=== PATIENT | female | born 1960 | race Caucasian/White ===

== ENCOUNTER 2019-04-11 16:40 | Observation (INO) | payer BC ==
--- NOTE | 2019-04-11 17:13 | ER Document Report ---
ED Medical Screen (RME) - General Chief Complaint: Chest Pain Stated Complaint: CHEST PAIN Time Seen by Provider: 04/11/19 17:06 Mode of Arrival: Ambulatory Information source: Patient Notes: 59-year-old female with history of arthritis fibromyalgia presents to the emergency department with 2 episodes of severe chest pain radiating up to her jaw. She reports it felt like her shoulder muscles were gavnio and she had severe pain through her chest and then it went up to her neck, jaw and down her left arm. Patient took 2 BC powders this morning. No complaints of nausea and vomiting. Patient does smoke. Denies family history of cardiac disease. Patient denies history of cardiac disease. I have greeted and performed a rapid initial assessment of this patient. A comprehensive ED assessment and evaluation of the patient, analysis of test results and completion of the medical decision making process will be conducted by additional ED providers. TRAVEL OUTSIDE OF THE [place] IN LAST 30 DAYS: No - Related Data Allergies/Adverse Reactions: amoxicillin Allergy (Verified 04/11/19 17:06) Antihistamines - Ethylenediamine Allergy (Verified 04/11/19 17:06) Sulfa (Sulfonamide Antibiotics) Allergy (Verified 04/11/19 17:06) Past Medical History - Social History Frequency of alcohol use: None Drug Abuse: None Physical Exam - Vital signs Vitals: Temp Pulse Resp BP Pulse Ox 98.9 F 97 18 157/97 H 94 04/11/19 16:51 04/11/19 16:51 04/11/19 16:51 04/11/19 16:51 04/11/19 16:51 Course - Vital Signs Vital signs: Temp Pulse Resp BP Pulse Ox 98.9 F 97 18 157/97 H 94 04/11/19 16:51 04/11/19 16:51 04/11/19 16:51 04/11/19 16:51 04/11/19 16:51
[2019-04-11 17:47] LABS: ABSOLUTE EOSINOPHILS # (AUTO) 0.1 10^3/uL (0.0-0.6); ABSOLUTE LYMPHOCYTES (AUTO) 1.9 10^3/uL (0.5-4.7); ABSOLUTE MONOCYTES (AUTO) 0.7 10^3/uL (0.1-1.4); BASOPHILS % (AUTO) 0.3 % (0-2); EOSINOPHILS % (AUTO) 0.5 % (0-6); HEMATOCRIT 47.5 % (36.0-47.0); LYMPHOCYTES % (AUTO) 19.6 % (13-45); MEAN CORPUSCULAR HEMOGLOBIN 31.6 pg (27.0-33.4); MEAN CORPUSCULAR HGB CONC 33.7 g/dL (32.0-36.0); MEAN CORPUSCULAR VOLUME 94 fl (80-97); MONOCYTES % (AUTO) 7.1 % (3-13); PLATELET COUNT 264 10^3/uL (150-450); RED BLOOD COUNT 5.07 10^6/uL (3.72-5.28); SEGMENTED NEUTROPHILS % (AUTO) 72.5 % (42-78); TOTAL CELLS COUNTED % (AUTO) 100 %; WHITE BLOOD COUNT 9.7 10^3/uL (4.0-10.5)
[2019-04-11 17:57] LABS: APPEARANCE,URINE CLEAR; BILIRUBIN,URINE NEGATIVE (NEGATIVE); COLOR,URINE STRAW; GLUCOSE, URINE NEGATIVE (NEGATIVE); KETONES,URINE NEGATIVE (NEGATIVE); LEUKOCYTE ESTERASE,URINE NEGATIVE (NEGATIVE); NITRITE,URINE NEGATIVE (NEGATIVE); PROTEIN,URINE NEGATIVE (NEGATIVE); URINE SPECIFIC GRAVITY 1.009; UROBILINOGEN,URINE NEGATIVE mg/dL (<2.0)
--- NOTE | 2019-04-11 18:02 | RADIOLOGY REPORT (SQ) ---
EXAM DESCRIPTION: CHEST 2 VIEWS COMPLETED DATE/TIME: 04/11/2019 5:49 pm REASON FOR STUDY: cp COMPARISON: None. EXAM PARAMETERS: NUMBER OF VIEWS: two views TECHNIQUE: Digital Frontal and Lateral radiographic views of the chest acquired. RADIATION DOSE: NA LIMITATIONS: none FINDINGS: LUNGS AND PLEURA: No opacities, masses or pneumothorax. No pleural effusion. MEDIASTINUM AND HILAR STRUCTURES: No masses or contour abnormalities. HEART AND VASCULAR STRUCTURES: Heart normal size. No evidence for failure. BONES: No acute findings. HARDWARE: None in the chest. Hardware in the cervical spine. OTHER: No other significant finding. IMPRESSION: NO ACUTE RADIOGRAPHIC FINDING IN THE CHEST. TECHNICAL DOCUMENTATION: JOB ID: [id number] [employer]- All Rights Reserved Reading location - IP/workstation name: [email or web address]
[2019-04-11 18:05] LABS: ALBUMIN 4.3 g/dL (3.5-5.0); ALKALINE PHOSPHATASE 57 U/L (38-126); ANION GAP 6 (5-19); ASPARTATE AMINO TRANSFERASE 22 U/L (14-36); BILIRUBIN,DIRECT 0.3 mg/dL (0.0-0.4); BILIRUBIN,TOTAL 0.3 mg/dL (0.2-1.3); BLOOD UREA NITROGEN 14 mg/dL (7-20); CALCIUM 9.5 mg/dL (8.4-10.2); CARBON DIOXIDE 36 mmol/L (22-30); CHLORIDE 98 mmol/L (98-107); POTASSIUM 3.5 mmol/L (3.6-5.0)
[2019-04-11 18:14] LABS: GLUCOSE 68 mg/dL (75-110)
[2019-04-11] MEDS ORDERED: ASPIRIN 81 MG TABLET, CHEWABLE PO ONE (20:40)
--- NOTE | 2019-04-11 22:00 | ER Document Report ---
Entered by JAQUELIN PINZON SCRIBE 04/11/192024 Acting as scribe for:MARY MOROCHO IV, MD ED General - General Chief Complaint: Chest Pain Stated Complaint: CHEST PAIN Time Seen by Provider: 04/11/19 17:06 Mode of Arrival: Ambulatory Information source: Patient Notes: This 59 year old female patient presents to the ED today with complaints of x2 episodes of severe sternal chest pain that began around 3:30 PM today. Patient states that she was sitting down at home when the first episode of pain started initially in her neck and shot down to her chest with radiation to her jaw and left arm. Patient states that the first episode lasted about x5-10 minutes and went away on its own. Patient notes that the second episode occurred around 4:30 PM, lasted less than x5 minutes, and was less intense as the first episode. Patient notes that she took 2 BC powders this morning. Patient denies any chest pain at this time, but reports a slight headache. Patient states that does have a history of hypertension, but stopped taking her medications for it x1-1.5 years ago when she was diagnosed with rheumatoid arthritis. Patient states that ever since her diagnosis, she has felt sick all the time and that she has no energy. Patient reports that she is a smoker and that she had a nucleotide stress test x4-5 years with no concerning results. TRAVEL OUTSIDE OF THE [place] IN LAST 30 DAYS: No - Related Data Allergies/Adverse Reactions: amoxicillin Allergy (Verified 04/11/19 17:06) Antihistamines - Ethylenediamine Allergy (Verified 04/11/19 17:06) Sulfa (Sulfonamide Antibiotics) Allergy (Verified 04/11/19 17:06) Past Medical History - General Information source: Patient - Social History Smoking Status: Current Every Day Smoker Chew tobacco use (# tins/day): No Smoking Education Provided: No Frequency of alcohol use: None Drug Abuse: None Family History: Reviewed & Not Pertinent, CVA - Mother, Other - Sister had open heart surgery at age 52 Patient has suicidal ideation: No Patient has homicidal ideation: No - Past Medical History Cardiac Medical History: Reports: Hx Hypertension Musculoskeletal Medical History: Reports Hx Arthritis - Rheumatoid, Reports Hx Fibromyalgia Review of Systems - Review of Systems Constitutional: No symptoms reported EENT: No symptoms reported Cardiovascular: See HPI, Chest pain Respiratory: No symptoms reported Gastrointestinal: No symptoms reported Genitourinary: No symptoms reported Female Genitourinary: No symptoms reported Musculoskeletal: No symptoms reported Skin: No symptoms reported Hematologic/Lymphatic: No symptoms reported Neurological/Psychological: See HPI, Headaches -: Yes All other systems reviewed and negative Physical Exam - Vital signs Vitals: Temp Pulse Resp BP Pulse Ox 98.9 F 97 18 157/97 H 94 04/11/19 16:51 04/11/19 16:51 04/11/19 16:51 04/11/19 16:51 04/11/19 16:51 Interpretation: Hypertensive - General General appearance: Alert - HEENT Head: Normocephalic, Atraumatic Eyes: Normal Pupils: PERRL - Respiratory Respiratory status: No respiratory distress Chest status: Nontender Breath sounds: Normal Chest palpation: Normal - Cardiovascular Rhythm: Regular Heart sounds: Normal auscultation Murmur: No - Abdominal Inspection: Normal Distension: No distension Bowel sounds: Normal Tenderness: Nontender Organomegaly: No organomegaly - Back Back: Normal, Nontender - Extremities General upper extremity: Normal inspection General lower extremity: Normal inspection - Neurological Neuro grossly intact: Yes - Psychological Associated symptoms: Normal affect, Normal mood - Skin Skin Temperature: Warm Skin Moisture: Dry Skin Color: Normal Course - Re-evaluation Re-evalutation: 04/11/19 22:52 Results of ED MSE discussed with patient and patient's significant other. All questions were answered. - Vital Signs Vital signs: Temp Pulse Resp BP Pulse Ox 98.9 F 97 19 136/97 H 93 04/11/19 16:51 04/11/19 16:51 04/11/19 22:01 04/11/19 22:01 04/11/19 22:01 - Laboratory Result Diagrams: 04/11/19 17:27 04/11/19 17:27 Laboratory results interpreted by me: 04/11/19 04/11/19 17:27 17:27 Hgb 16.0 H Hct 47.5 H Potassium 3.5 L Carbon Dioxide 36 H Glucose 68 L - Diagnostic Test Radiology reviewed: Reports reviewed - EKG Interpretation by Me Additional EKG results interpreted by me: 04/11/19 22:45 EKG obtained on 04/11/2019 at 1644 hrs. was interpreted by this MD. Findings: Sinus rhythm, rate 99, normal axis, P waves proceed QRS complexes, QRS complexes appear narrow, ST segments are nonspecific. Impression: Normal sinus rhythm with nonspecific ST segments EKG obtained on 04/11/2019 at 2233 hrs. was interpreted by this MD. Findings: Normal sinus rhythm, normal axis, rate 89, P waves preceding QRS complexes, QRS complexes appear narrow, there are no obvious patterns of ST segment elevation or depression to suggest acute ischemia or infarction. Impression: Normal sinus rhythm with nonspecific ST segments. - Consults DR. SAHNI Time consulted: 22:08 - STATED REPEAT EKG, IF UNCHANGED, ADMIT TO HOSPITALIST Reason for consultation: 04/11/19 22:[address] SANCHEZ Time consulted: 22:45 - Accepted patient for admission to telemetry OBS. Re quested repeat Accu-Chek and TSH be added to work-up. Reason for consultation: 04/11/19 22:51 CHEST PAIN Consulted provider: will see as inpatient Discharge - Discharge Clinical Impression: Chest pain Qualifiers: Chest pain type: unspecified Qualified Code(s): R07.9 - Chest pain, unspecified Condition: Good Disposition: ADMITTED OBSERVATION Admitting Provider: Mohsen (Hospitalist) Unit Admitted: Telemetry I personally performed the services described in the documentation, reviewed and edited the documentation which was dictated to the scribe in my presence, and it accurately records my words and actions.
[2019-04-11] MEDS ORDERED: ACETAMINOPHEN 325 MG TABLET PO PRN (22:52)
[2019-04-11] MEDS ORDERED: NITROGLYCERIN 0.4 MG/TAB 25 TAB/BOTTLE SL PRN (22:52)
--- NOTE | 2019-04-11 23:21 | EKG REPORT ---
SEVERITY:- ABNORMAL ECG - SINUS RHYTHM RIGHT ATRIAL ABNORMALITY BORDERLINE T ABNORMALITIES, ANT-LAT LEADS : Confirmed by: Jackie Oakley 11-Apr-2019 23:20:31
--- NOTE | 2019-04-11 23:22 | EKG REPORT ---
SEVERITY:- ABNORMAL ECG - SINUS RHYTHM RAA, CONSIDER BIATRIAL ABNORMALITIES BORDERLINE T ABNORMALITIES, ANT-LAT LEADS : Confirmed by: Jackie Oakley 11-Apr-2019 23:20:41
--- NOTE | 2019-04-12 06:50 | PDOC H&P ---
History of Present Illness Admission Date/PCP: 04/11/19 23:20 Patient complains of: Chest pain History of Present Illness: SIERRA DIAZ is a 59 year old female with a past medical history of hypertension without treatment, GERD, 80 pack years of tobacco, 30 pound weight loss in 2 years and chronic pain. She presents 5 hours after 2 similar episodes of 3-5 chest tightness radiating about her upper chest to the left arm associated with shortness of breath, nausea, denying palpitations. She is unable to identify alleviating or exacerbating factors. She denies recent change in medications, previous episode or recent cardiac stress test. In the emergency department she has an unremarkable work-up and is referred to the hospitalist for observation. Past Medical History Cardiac Medical History: Reports: Hypertension Musculoskeltal Medical History: Reports: Arthritis - Rheumatoid, Fibromyalgia Psychiatric Medical History: Reports: Tobacco Dependency Denies: Depression Past Surgical History Past Surgical History: Reports: Other - C-spine surgery Social History Smoking Status: Current Every Day Smoker Cigarettes Packs Per Day: 2 Number of Years Smokin Frequency of Alcohol Use: None Hx Recreational Drug Use: No - denies Drugs: None Hx Prescription Drug Abuse: No - Advance Directive Resuscitation Status: Full Code Family History Family History: CAD, CVA - Mother, Other - Sister had open heart surgery at age 52 Parental Family History Reviewed: Yes Children Family History Reviewed: Yes Sibling(s) Family History Reviewed.: Yes Medication/Allergy Home Medications: Butalb/Acetaminophen/Caffeine [Fioricet (50-325-40 mg) Tablet] 1 tab PO BID 04/12/19 Cyclobenzaprine HCl [Flexeril 10 mg Tablet] 10 mg PO BID 04/12/19 Gabapentin 600 mg PO TID 04/12/19 Pregabalin [Lyrica 100 mg Capsule] 100 mg PO TID 04/12/19 Allergies/Adverse Reactions: amoxicillin Allergy (Verified 04/11/19 17:06) Antihistamines - Ethylenediamine Allergy (Verified 04/11/19 17:06) monosodium glutamate Allergy (Verified 04/12/19 03:41) pineapple Allergy (Verified 04/12/19 03:39) Sulfa (Sulfonamide Antibiotics) Allergy (Verified 04/11/19 17:06) Review of Systems Constitutional: PRESENT: as per HPI, fatigue, weight loss. ABSENT: chills, fever(s), headache(s), weight gain Eyes: ABSENT: visual disturbances Ears: ABSENT: hearing changes Cardiovascular: ABSENT: chest pain, dyspnea on exertion, edema, orthropnea, palpitations Respiratory: PRESENT: cough. ABSENT: hemoptysis, sputum Gastrointestinal: ABSENT: abdominal pain, constipation, diarrhea, hematemesis, hematochezia, nausea, vomiting Genitourinary: ABSENT: dysuria, hematuria Musculoskeletal: ABSENT: joint swelling Integumentary: ABSENT: rash, wounds Neurological: ABSENT: abnormal gait, abnormal speech, confusion, dizziness, focal weakness, syncope Psychiatric: ABSENT: anxiety, depression, homidical ideation, suicidal ideation Endocrine: ABSENT: cold intolerance, heat intolerance, polydipsia, polyuria Hematologic/Lymphatic: ABSENT: easy bleeding, easy bruising Physical Exam Vital Signs: Temp Pulse Resp BP Pulse Ox 97.3 F 83 18 150/98 H 92 04/12/19 02:53 04/12/19 02:53 04/12/19 02:53 04/12/19 02:53 04/12/19 02:53 Intake & Output 04/10/19 04/11/19 04/12/19 11:59 11:59 11:59 Weight 47.5 kg General appearance: PRESENT: no acute distress, cooperative, thin, well-de veloped, well-nourished Head exam: PRESENT: atraumatic, normocephalic Eye exam: PRESENT: conjunctiva pink, EOMI, PERRLA. ABSENT: scleral icterus Ear exam: PRESENT: normal external ear exam Mouth exam: PRESENT: moist, tongue midline Neck exam: ABSENT: carotid bruit, JVD, lymphadenopathy, thyromegaly Respiratory exam: PRESENT: crackles, prolonged expiratory phas, symmetrical. ABSENT: accessory muscle use, clear to auscultation shanti, stridor, tachypnea Cardiovascular exam: PRESENT: RRR. ABSENT: diastolic murmur, rubs, systolic murmur Pulses: PRESENT: normal dorsalis pedis pul Vascular exam: PRESENT: normal capillary refill GI/Abdominal exam: PRESENT: normal bowel sounds, soft. ABSENT: distended, guarding, mass, organolmegaly, rebound, tenderness Rectal exam: PRESENT: deferred Extremities exam: PRESENT: full ROM. ABSENT: calf tenderness, clubbing, pedal edema Neurological exam: PRESENT: alert, awake, oriented to person, oriented to place, oriented to time, oriented to situation, CN II-XII grossly intact. ABSENT: motor sensory deficit Psychiatric exam: PRESENT: appropriate affect, normal mood. ABSENT: homicidal ideation, suicidal ideation Skin exam: PRESENT: dry, intact, warm. ABSENT: cyanosis, rash Results Laboratory Results: 04/11/19 17:27 04/11/19 17:27 04/11/19 04/11/19 04/11/19 17:27 17:27 17:27 WBC 9.7 RBC 5.07 Hgb 16.0 H Hct 47.5 H MCV 94 MCH 31.6 MCHC 33.7 RDW 14.0 Plt Count 264 Seg Neutrophils % 72.5 Sodium 140.2 Potassium 3.5 L Chloride 98 Carbon Dioxide 36 H Anion Gap 6 BUN 14 Creatinine 0.63 Est GFR ( Amer) > 60 Glucose 68 L Calcium 9.5 Total Bilirubin 0.3 AST 22 Alkaline Phosphatase 57 Total Protein 8.0 Albumin 4.3 TSH Urine Color STRAW Urine Appearance CLEAR Urine pH 6.0 Ur Specific [place] 1.009 Urine Protein NEGATIVE Urine Glucose (UA) NEGATIVE Urine Ketones NEGATIVE Urine Blood NEGATIVE Urine Nitrite NEGATIVE Ur Leukocyte Esterase NEGATIVE Urine WBC (Auto) 0 Urine RBC (Auto) 0 04/11/19 17:27 WBC RBC Hgb Hct MCV MCH MCHC RDW Plt Count Seg Neutrophils % Sodium Potassium Chloride Carbon Dioxide Anion Gap BUN Creatinine Est GFR ( Amer) Glucose Calcium Total Bilirubin AST Alkaline Phosphatase Total Protein Albumin TSH 2.32 Urine Color Urine Appearance Urine pH Ur Specific [place] Urine Protein Urine Glucose (UA) Urine Ketones Urine Blood Urine Nitrite Ur Leukocyte Esterase Urine WBC (Auto) Urine RBC (Auto) 04/11/19 04/11/19 04/12/19 17:27 20:22 02:50 Troponin I 0.015 0.021 < 0.012 Impressions: Chest X-Ray 04/11/19 17:10 IMPRESSION: NO ACUTE RADIOGRAPHIC FINDING IN THE CHEST. Assessment and Plan - Diagnosis (1) Chest pain Qualifiers: Chest pain type: unspecified Qualified Code(s): R07.9 - Chest pain, unspe cified Is this a current diagnosis for this admission?: Yes Plan: Chest pain care set deployed, follow-up cardiac enzymes, lipid profile, TSH and Cardiolite stress test. (2) Hypertension Is this a current diagnosis for this admission?: Yes Plan: Trial Norvasc (3) Chronic pain Is this a current diagnosis for this admission?: Yes Plan: Outpatient regiment, hold Lyrica secondary to CO2 retention. (4) Weight loss Is this a current diagnosis for this admission?: Yes Plan: High risk for lung cancer, follow-up CT chest (5) Tobacco abuse Is this a current diagnosis for this admission?: Yes Plan: Cessation counseling performed, nicotine replacement options discussed. (6) COPD (chronic obstructive pulmonary disease) Is this a current diagnosis for this admission?: Yes Plan: Albuterol, Atrovent twice daily (7) Polycythemia Is this a current diagnosis for this admission?: Yes Plan: Reactive secondary to COPD and tobacco dependence. Education - Time Time Spent with patient: 25-34 minutes - Inpatient Certification Medical Necessity: Need Close Monitoring Due to Risk of Patient Decompensation
[2019-04-12] MEDS ORDERED: AMLODIPINE BESYLATE 5 MG TABLET PO ONE (07:00)
[2019-04-12 07:51] LABS: CHOLESTEROL 200.88 mg/dL (0-200); TRIGLYCERIDES 102 mg/dL (<150)
[2019-04-12] MEDS ORDERED: IPRATROPIUM/ALBUTEROL 0.5-2.5 MG/3 ML AMPUL NEB SCH (08:00)
[2019-04-12 08:02] LABS: DIRECT LDL 143 mg/dL (<100)
[2019-04-12] MEDS: GABAPENTIN 300 MG CAPSULE PO SCH ×2 (09:41→14:23)
--- NOTE | 2019-04-12 09:52 | RADIOLOGY REPORT (SQ) ---
EXAM DESCRIPTION: CT CHEST WITH COMPLETED DATE/TIME: 04/12/2019 8:57 am REASON FOR STUDY: weight loss, 80 pack years COMPARISON: Chest x-ray dated 04/11/2019. TECHNIQUE: CT scan of the chest performed using helical scanning technique with dynamic intravenous contrast injection. Images reviewed with lung, soft tissue and bone windows. Reconstructed coronal and sagittal MPR and MIP images reviewed. All images stored on PACS. All CT scanners at this facility use dose modulation, iterative reconstruction, and/or weight based d osing when appropriate to reduce radiation dose to as low as reasonably achievable (ALARA). [facility]: Dose Right [facility]: CareDose [facility]: Dose Right [facility]: Teradose 4D [facility]: [employer] CONTRAST TYPE AND DOSE: contrast/concentration: Isovue 350.00 mg/ml; Total Contrast Delivered: 70.0 ml; Total Saline Delivered: 55.0 ml RENAL FUNCTION: BUN 14 creatinine 0.63. RADIATION DOSE: CT Rad equipment meets quality standard of care and radiation dose reduction techniq ues were employed. CTDIvol: 4.8 mGy. DLP: 178 mGy-cm. . LIMITATIONS: None. FINDINGS: LUNGS AND PLEURA: There are few scattered tiny, 1-2 mm, subpleural nodules in both lungs. No infiltrates or masses. No pneumothorax. No effusions. HILAR AND MEDIASTINAL STRUCTURES: No identified masses or abnormal nodes. HEART AND VASCULAR STRUCTURES: No aneurysm or dissection. No central pulmonary emboli. No pericardi al effusion. HARDWARE: None in the chest. UPPER ABDOMEN: No significant findings. Limited exam. THYROID AND OTHER SOFT TISSUES: No masses. No adenopathy. BONES: There is a subtle small radiolucency in the right side of the body of the T4 vertebra, best vi sualized on axial series 4, image 19 and sagittal series 602, image 45. OTHER: No other significant finding. IMPRESSION: 1. SUBTLE SMALL RADIOLUCENCY IN THE RIGHT SIDE OF THE BODY OF THE T4 VERTEBRA DESCRIBED. THIS COU LD REPRESENT TRABECULAR PATTERN ALTHOUGH CANNOT EXCLUDE A SMALL LYTIC METASTASIS. MAY CONSIDER MRI F OR FURTHER EVALUATION. 2. A FEW SCATTERED TINY SUBPLEURAL NODULES IN BOTH LUNGS, MEASURING 1-2 MM. NO OTHER SIGNIFICANT FIN DINGS IN THE CHEST. MAY CONSIDER FOLLOW-UP BASED ON FLEISCHNER CRITERIA. COMMENT: FLEISCHNER CRITERIA FOR FOLLOW-UP OF PULMONARY NODULES Incidentally detected new nodules in persons 35 or older. HIGH RISK: History of smoking or other known risk factors. <6 mm multiple solid nodules: LOW RISK: no routine followup. HIGH RISK: optional CT 12 mo. TECHNICAL DOCUMENTATION: JOB ID: [id number] Quality ID # [id number]: Final reports with documentation of one or more dose reduction techniques (e.g., Au tomated exposure control, adjustment of the mA and/or kV according to patient size, use of iterative reconstruction technique) 2010 [employer]- All Rights Reserved Reading location - IP/workstation name: [email or web address]
[2019-04-12] MEDS ORDERED: CYCLOBENZAPRINE HCL 10 MG TABLET PO SCH (10:00)
[2019-04-12] MEDS ORDERED: BUTALB/ACETAMINOPHEN/CAFFEINE 1 TAB EACH PO SCH (10:00)
[2019-04-12] MEDS ORDERED: PREGABALIN 100 MG CAPSULE PO SCH (14:00)
--- NOTE | 2019-04-12 14:46 | PDOC DISCHARGE SUMMARY ---
Impression - Admit/DC Date/PCP Admission Date/Primary Care Provider: 04/11/19 23:20 Discharge Date: 04/12/19 - Discharge Diagnosis (1) Atypical chest pain Is this a current diagnosis for this admission?: Yes (2) Neuropathic pain of upper extremity Is this a current diagnosis for this admission?: Yes (3) Pulmonary nodules Is this a current diagnosis for this admission?: Yes (4) Hypertension Is this a current diagnosis for this admission?: Yes (5) Polycythemia Is this a current diagnosis for this admission?: Yes (6) Tobacco abuse Is this a current diagnosis for this admission?: Yes (7) Weight loss Is this a current diagnosis for this admission?: Yes - Additional Information Resuscitation Status: Full Code Discharge Diet: Other (Comments) - Low-fat low-cholesterol diet Discharge Activity: Activity As Tolerated Referrals: MANDA JOHNSON MD [ACTIVE STAFF] - Prescriptions: Atorvastatin Calcium [Lipitor 80 mg Tablet] 80 mg PO QHS #30 tablet Nitroglycerin [Nitrostat 0.4 mg (1/150 Gr) Tabs 25/Bottle] 1 tab SL Q5MP PRN #1 bottle PRN Reason: Amlodipine Besylate [Norvasc 5 mg Tablet] 5 mg PO DAILY 30 Days tablet Home Medications: Amlodipine Besylate [Norvasc 5 mg Tablet] 5 mg PO DAILY 30 Days tablet 04/12/19 Atorvastatin Calcium [Lipitor 80 mg Tablet] 80 mg PO QHS #30 tablet 04/12/19 Butalb/Acetaminophen/Caffeine [Fioricet (50-325-40 mg) Tablet] 1 tab PO BID 04/12/19 Cyclobenzaprine HCl [Flexeril 10 mg Tablet] 10 mg PO BID 04/12/19 Gabapentin 600 mg PO TID 04/12/19 Milnacipran HCl [Savella] 100 mg PO BID 04/12/19 Nitroglycerin [Nitrostat 0.4 mg (1/150 Gr) Tabs 25/Bottle] 1 tab SL Q5MP PRN #1 bottle 04/12/19 Pregabalin [Lyrica 100 mg Capsule] 100 mg PO TID 04/12/19 History of Present Illiness History of Present Illness: SIERRA DIAZ is a 59 year old female with a past medical history of hypertension without treatment, GERD, 80 pack years of tobacco, 30 pound weight loss in 2 years and chronic pain. She presents 5 hours after 2 similar episodes of 3-5 chest tightness radiating about her upper chest to the left arm associated with shortness of breath, nausea, denying palpitations. She is unable to identify alleviating or exacerbating factors. She denies recent change in medications, previous episode or recent cardiac stress test. In the emergency department she has an unremarkable work-up and is referred to the hospitalist for observation. Hospital Course Hospital Course: Patient was admitted and evaluated for chest pain. Patient's chest pain was atypical in nature emanating from bilateral sides of the neck and radiating down to chest and left arm. Patient endorsed a history of cervical spinal disease and has undergone cervical spinal surgery 3 years ago. Patient has also had a stress test a few years ago which was negative. Patient's EKG on this admission showed no evidence of ischemia. Initial troponin was minimally elevated at 0.01 5 but subsequent troponins were all normal. Patient underwent chest CT with contrast to evaluate her weight loss given her smoking history of 80 pack years. The chest CT showed no evidence of infiltrates or edema in the lungs and no masses but did show some tiny pulmonary nodules of 1 to 2 mm in diameter. Patient was informed and recommended to get a repeat chest CT in 1 year. Patient has been chest pain-free throughout today and is requesting that she would like to go home. She has assured that she will make a follow-up appointment with a energy efficiency specialist to have a stress test done given her risk factors for coronary artery disease. I have given her information for 1 of our energy efficiency specialist for her to follow-up with for stress test. Have also started her on amlodipine for hypertension, nitroglycerin for trial as needed for chest pain and atorvastatin given her dyslipidemia and ASCVD 10-year risk score of 16. At this time, it is not certain that her chest pain is due to any cardiovascular cause at this time though she has risk factors so she would need to have a stress test done. Another high suspicion as to the etiology of her symptoms include referred neuropathic pain from her established cervical spinal disease though Spurling's maneuver was negative. Patient is safe and steady for discharge at this time and her symptoms have resolved. Physical Exam Vital Signs: Temp Pulse Resp BP Pulse Ox 97.5 F 91 17 151/90 H 91 L 04/12/19 12:11 04/12/19 14:00 04/12/19 12:11 04/12/19 12:11 04/12/19 12:11 Intake & Output 04/11/19 04/12/19 04/13/19 06:59 06:59 06:59 Intake Total 240 Balance 240 Weight 47.5 kg General appearance: PRESENT: no acute distress, cooperative Neck exam: PRESENT: other - Negative Spurling's maneuver. ABSENT: JVD Respiratory exam: PRESENT: clear to auscultation shanti Cardiovascular exam: PRESENT: +S1, +S2 Results Laboratory Results: WBC 9.7 10^3/uL (4.0-10.5) 04/11/19 17:27 RBC 5.07 10^6/uL (3.72-5.28) 04/11/19 17:27 Hgb 16.0 g/dL (12.0-15.5) H 04/11/19 17:27 Hct 47.5 % (36.0-47.0) H 04/11/19 17:27 MCV 94 fl (80-97) 04/11/19 17:27 MCH 31.6 pg (27.0-33.4) 04/11/19 17:27 MCHC 33.7 g/dL (32.0-36.0) 04/11/19 17:27 RDW 14.0 % (11.5-14.0) 04/11/19 17:27 Plt Count 264 10^3/uL (150-450) 04/11/19 17:27 Lymph % (Auto) 19.6 % (13-45) 04/11/19 17:27 [place]ockley % (Auto) 7.1 % (3-13) 04/11/19 17:27 Eos % (Auto) 0.5 % (0-6) 04/11/19 17:27 Baso % (Auto) 0.3 % (0-2) 04/11/19 17:27 Absolute Neuts (auto) 7.0 10^3/uL (1.7-8.2) 04/11/19 17:27 Absolute Lymphs (auto) 1.9 10^3/uL (0.5-4.7) 04/11/19 17:27 Absolute Monos (auto) 0.7 10^3/uL (0.1-1.4) 04/11/19 17:27 Absolute Eos (auto) 0.1 10^3/uL (0.0-0.6) 04/11/19 17:27 Absolute Basos (auto) 0.0 10^3/uL (0.0-0.2) 04/11/19 17:27 Seg Neutrophils % 72.5 % (42-78) 04/11/19 17:27 Sodium 140.2 mmol/L (137-145) 04/11/19 17:27 Potassium 3.5 mmol/L (3.6-5.0) L 04/11/19 17:27 Chloride 98 mmol/L (98-107) 04/11/19 17:27 Carbon Dioxide 36 mmol/L (22-30) H 04/11/19 17:27 Anion Gap 6 (5-19) 04/11/19 17:27 BUN 14 mg/dL (7-20) 04/11/19 17:27 Creatinine 0.63 mg/dL (0.52-1.25) 04/11/19 17:27 Est GFR ( Amer) > 60 (>60) 04/11/19 17:27 Est GFR (MDRD) Non-Af > 60 (>60) 04/11/19 17:27 Glucose 68 mg/dL (75-110) L 04/11/19 17:27 POC Glucose 146 mg/dL (70-110) H 04/11/19 22:55 Calcium 9.5 mg/dL (8.4-10.2) 04/11/19 17:27 Total Bilirubin 0.3 mg/dL (0.2-1.3) 04/11/19 17:27 Direct Bilirubin 0.3 mg/dL (0.0-0.4) 04/11/19 17:27 Neonat Total Bilirubin Not Reportable 04/11/19 17:27 Neonat Direct Bilirubin Not Reportable 04/11/19 17:27 Neonat Indirect Bili Not Reportable 04/11/19 17:27 AST 22 U/L (14-36) 04/11/19 17:27 ALT 11 U/L (<35) 04/11/19 17:27 Alkaline Phosphatase 57 U/L (38-126) 04/11/19 17:27 Troponin I < 0.012 ng/mL 04/12/19 09:37 Total Protein 8.0 g/dL (6.3-8.2) 04/11/19 17:27 Albumin 4.3 g/dL (3.5-5.0) 04/11/19 17:27 Triglycerides 102 mg/dL (<150) 04/12/19 06:49 Cholesterol 200.88 mg/dL (0-200) H 04/12/19 06:49 LDL Cholesterol Direct 143 mg/dL (<100) H 04/12/19 06:49 VLDL Cholesterol 20.0 mg/dL (10-31) 04/12/19 06:49 HDL Cholesterol 45 mg/dL (>40) 04/12/19 06:49 TSH 2.32 uIU/mL (0.47-4.68) 04/11/19 17:27 Urine Color STRAW 04/11/19 17:27 Urine Appearance CLEAR 04/11/19 17:27 Urine pH 6.0 (5.0-9.0) 04/11/19 17:27 Ur Specific Kinsley 1.009 04/11/19 17:27 Urine Protein NEGATIVE mg/dL (NEGATIVE) 04/11/19 17:27 Urine Glucose (UA) NEGATIVE mg/dL (NEGATIVE) 04/11/19 17:27 Urine Ketones NEGATIVE mg/dL (NEGATIVE) 04/11/19 17:27 Urine Blood NEGATIVE (NEGATIVE) 04/11/19 17:27 Urine Nitrite NEGATIVE (NEGATIVE) 04/11/19 17:27 Urine Bilirubin NEGATIVE (NEGATIVE) 04/11/19 17:27 Urine Urobilinogen NEGATIVE mg/dL (<2.0) 04/11/19 17:27 Ur Leukocyte Esterase NEGATIVE (NEGATIVE) 04/11/19 17:27 Urine WBC (Auto) 0 /HPF 04/11/19 17:27 Urine RBC (Auto) 0 /HPF 04/11/19 17:27 Squamous Epi Cells Auto 1 /HPF 04/11/19 17:27 Urine Mucus (Auto) RARE /LPF 04/11/19 17:27 Urine Ascorbic Acid NEGATIVE (NEGATIVE) 04/11/19 17:27 04/11/19 04/11/19 04/12/19 17:27 20:22 02:50 Troponin I 0.015 0.021 < 0.012 04/12/19 09:37 Troponin I < 0.012 Impressions: Chest X-Ray 04/11/19 17:10 IMPRESSION: NO ACUTE RADIOGRAPHIC FINDING IN THE CHEST. Chest CT 04/12/19 00:00 IMPRESSION: 1. SUBTLE SMALL RADIOLUCENCY IN THE RIGHT SIDE OF THE BODY OF THE T4 VERTEBRA DESCRIBED. THIS COULD REPRESENT TRABECULAR PATTERN ALTHOUGH CANNOT EXCLUDE A SMALL LYTIC METASTASIS. MAY CONSIDER MRI FOR FURTHER EVALUATION. 2. A FEW SCATTERED TINY SUBPLEURAL NODULES IN BOTH LUNGS, MEASURING 1-2 MM. NO OTHER SIGNIFICANT FINDINGS IN THE CHEST. MAY CONSIDER FOLLOW-UP BASED ON FLEISCHNER CRITERIA. Plan Time Spent: Less than 30 Minutes Stroke Is this a Stroke Patient?: No Acute Heart Failure - Is this a Heart Failure Patient?: No
[2019-04-12 15:17] VITALS: BP 150/98
[2019-04-12] MEDS ORDERED: ATORVASTATIN CALCIUM 80 MG TABLET PO SCH (22:00)
[2019-04-13] MEDS ORDERED: AMLODIPINE BESYLATE 5 MG TABLET PO SCH (10:00)
== END 2019-04-12 15:43 | disposition home or self-care (01) ==
LOC: ER 16:40 → EH 23:20 → 4S 04-12 02:37
PROVIDERS: ADMIT Internal Medicine; ATTEND Internal Medicine
DX: R07.89 Other chest pain (principal); G56.80 Other specified mononeuropathies of unspecified upper limb; R91.8 Other nonspecific abnormal finding of lung field; I10 Essential (primary) hypertension; D75.1 Secondary polycythemia; R63.4 Abnormal weight loss; E78.5 Hyperlipidemia, unspecified; M06.9 Rheumatoid arthritis, unspecified; M79.7 Fibromyalgia; R05 Cough; G89.29 Other chronic pain; F17.210 Nicotine dependence, cigarettes, uncomplicated; J44.9 Chronic obstructive pulmonary disease, unspecified; Z98.890 Other specified postprocedural states; Z82.49 Family history of ischemic heart disease and other diseases of the circulatory system
CPT/HCPCS: 93005; 99285; 36415 ×2; 82962; 84443; 85025; 80053; 81001; 84484 ×2; 80061; 71046; 71260; 93010; 94640; G0378 ×3; J3490; J7620